=== PATIENT | female | born 1990 | race Caucasian/White ===

== ENCOUNTER → 2017-01-31 | Outpatient (CLI) | payer BC | LOC: LAB 10:26 | DX: S61.452A Open bite of left hand, initial encounter (principal); W55.01XA Bitten by cat, initial encounter ==

== ENCOUNTER → 2017-02-07 | Outpatient (CLI) | payer BC | LOC: LAB 10:58 | DX: S61.452D Open bite of left hand, subsequent encounter (principal); A21.9 Tularemia, unspecified ==

== ENCOUNTER → 2019-07-19 | Outpatient (CLI) | payer BC | LOC: LAB 14:09 | DX: J04.0 Acute laryngitis (principal); J02.9 Acute pharyngitis, unspecified ==

== ENCOUNTER → 2019-11-20 | Outpatient (CLI) | payer BC ==
[2019-11-20 18:23] LABS: CLUE CELLS NOT OBSERVED (Not Observd)
== END ==
LOC: LAB 18:12
PROVIDERS: Nurse Practitioner
DX: R10.2 Pelvic and perineal pain (principal)
CPT/HCPCS: Q0111

== ENCOUNTER → 2020-09-29 | Outpatient (CLI) | payer BC ==
[2020-09-29 17:42] LABS: CLUE CELLS NOT OBSERVED (Not Observd)
== END ==
LOC: LAB 16:58
PROVIDERS: Physician Assistant
DX: R10.2 Pelvic and perineal pain (principal)
CPT/HCPCS: Q0111

== ENCOUNTER → 2023-04-13 | Outpatient (CLI) | payer BC | LOC: LAB 15:28 | DX: N39.0 Urinary tract infection, site not specified (principal) ==

== ENCOUNTER → 2023-07-07 | Outpatient (CLI) | payer BC | LOC: RAD 16:12 | DX: M79.671 Pain in right foot (principal) ==

== ENCOUNTER → 2024-04-30 | Outpatient (REF) | payer BC | LOC: LAB 13:47 | DX: R05.9 Cough, unspecified (principal) ==